=== PATIENT | female | born 1980 | race Two or more races ===

== ENCOUNTER 2021-01-13 08:41 | Inpatient (IN) ==
[2021-01-13] MEDS ORDERED: OXYTOCIN 30 UNITS/500 ML BAG IV PRN ×3 (09:10→17:12)
[2021-01-13] MEDS ORDERED: LACTATED RINGER'S 1,000 ML IV PRN (09:10)
[2021-01-13 09:35] LABS: Hemoglobin 12.4 g/dL (12.0-16.0); Mean Corpuscular Hgb Conc 34.4 g/dL (32-36); Mean Corpuscular Volume 101.7 fL (80-100); Mean Platelet Volume 11.3 fL (7.4-10.4); Platelet Count 156 K/uL (130-400); RDW Coefficient of Variation 12.5 % (11.5-14.5); RDW Standard Deviation 46.4 fL (36.4-46.3); Red Blood Count 3.54 M/uL (4.2-5.4); White Blood Count 6.35 K/uL (4.8-10.8)
--- NOTE | 2021-01-13 09:35 | History & Physical Report ---
Date of Service January 13, 2021 Assessment & Plan (1) Encounter for induction of labor: Plan: 40 yo EGA 40 wk by LMP, MARYLU 01/10/21, complicated by AMA and velamentous cord insertion, presenting for postdates IOL -HDS, afebrile -Blood type O+, GBS-, RI -Rh neg -SROM at 05:30 / -CTX every 4-5 minutes, good FM -FHT Cat 1 -Continue pitocin -Serial pelvic exams Admission and Anticipated Discharge Date Admission Date: January 13, 2021 History of Present Illness Primary Care Provider: SHARYN Huitron 40 yo EGA 40 wk confirmed by LMP, MARYLU 01/10/21, here for postdates induction of labor. complications include advanced maternal age, velamentous cord insertion. Has been attending OB appointments regularly with frequent ultrasound/NST monitoring, reassuring. Currently taking no medications. Reports gush of fluid at 05:30 AM, noticed minor spotting. Active FM, approximately 1-2 movements per hour. Did not experience contractions until 15- 20 minutes before arrival to L&D a few hours later. Contractions painful, occur every 4-5 minutes. Baby in vertex presentation via most recent OB clinic ultrasound. Currently denies any acute complaints or distress. OBHx: at 41 wks in 2007 with LGA baby, SAB at 6 weeks in 2017 GynHx: Chlamydia infection, resolved. Cervicitis s/p cauterization OB Labs: Blood Type O Positive 06/19/20 Antibody Screen NEGATIVE 06/19/20 Hemoglobin 12.0 g/dL (12.0-16.0) 10/16/20 Hematocrit 34.8 % (37-47) L 10/16/20 Mean Corpuscular Volume 94.0 fL (80-100) 06/19/20 Platelet Count 167 K/uL (130-400) 06/19/20 Rubella IgG Antibody Immune (Immune) 06/19/20 Rapid Plasma Reagin Nonreactive (Nonreactive) 06/19/20 Hepatitis B Surface Antigen Neg (Neg) 06/19/20 HIV (1&2) Ab and P24 Ag, 4th Gener Neg (Neg) 06/19/20 Glucose 1 Hour 50 gm Load 85 mg/dl (70-130) 10/16/20 Maternal Serum Alpha Fetoprotein 51.4 ng/mL 07/31/20 OB Optional Labs: Chlamydia trachomatis RNA NOT DETECTED (NOT DETECTED) 06/19/20 Neisseria gonorrhoeae RNA NOT DETECTED (NOT DETECTED) 06/19/20 Allergies Allergy/AdvReac Type Severity Reaction Status Date / Time No Known Allergies Allergy Verified 01/13/21 08:50 Home Medications Medication Instructions Recorded Confirmed Type prenat.vits,debora,[id number]-ralno 1 tab PO DAILY 06/05/20 01/13/21 History Jobst Stockings 1 ea .ROUTE .COMPLEX #1 ea 10/16/20 01/10/21 Rx Past Med/Surg History Medical History (Updated 01/13/21 @ 09:32 by Alex Santiago MD) History of chicken pox Surgical History (Updated 06/05/20 @ 10:44 by Ivelisse Good) S/P tonsillectomy Family History (Updated 06/05/20 @ 10:45 by Ivelisse Good) Mother Hypertension Father Hypertension Denies family history of Ovarian cancer Breast cancer Colorectal cancer Social History (Updated 06/05/20 @ 10:33 by Ivelisse Good) Smoking Status: Never smoker Hx Alcohol Use: No Hx Substance Use: No Preferred Language: [place] Communication Ability: Effective Crochet Beader Required: No Beliefs That Will Affect Care: None marital status: marital status details: spouse (54) [phone] Current Living Situation: Spouse Current Living Situation Comment: lives with spouse, son, no pets current occupational status: unemployed current occupation: homemaker Other Information That Helps Us Care for You: No Feels Safe at Home: Yes Safety Concerns: Feels Safe At This Time Assistive Devices: None Review of Systems Review of Systems: Denies fevers/chills. Denies dyspnea, cough. Denies chest pain. Denies breast pain or discharge. Denies dysuria. Denies headache. Physical Exam Physical Exam: General: Alert, oriented, no acute distress Cardiac: Regular rate and rhythm, normal S1, S2. No murmurs appreciated. Respiratory: Clear to auscultation b/l with good air flow entry, symmetric chest rise and fall. No wheezes or crackles. No increased work of breathing or accessory muscle use Abdomen: Gravid, soft, nontender. No guarding or CVA tenderness Skin: No rashes or lesions Extremities: Warm, dry, well-perfused with capillary refill <2s b/l Pelvic exam by Dr. Alvarez Dilation: 1-2 cm Effacement: 90% Station: -2 FHR Baseline: 135 BPM Variability: Moderate Accelerations: 15x15, present Decelerations: Absent Category: 1 Results & Data Results & Data ([facility]) Vital Signs (Past 12 Hours) Vital Signs Pulse BP 01/13/21 08:48 85 119/72 Supervising Physician Co-Signing Physician Notes Resident Physician Supervision Note: I interviewed and examined the patient. Discussed with Dr. Santiago and agree with findings and plan as documented in the note. Any exceptions or clarifications are listed here: [None] Documented By: Jamee Aguilar MD, FACOG Resident Activity Tracking Resident Involvement: Resident Care Provided Care Provided: OB Delivery
[2021-01-13] MEDS ORDERED: ePHEDrine sulfate 50 MG/ML AMP ONE (15:10)
[2021-01-13] MEDS ORDERED: SODIUM CHLORIDE 0.9% INJ 10 ML VIAL ONE (15:10)
[2021-01-13] MEDS ORDERED: BUPIVACAINE 0.25% 30 ML VIAL ONE (15:10)
[2021-01-13] MEDS ORDERED: fentaNYL citrate 100 MCG/2 ML VIAL ONE (15:11)
[2021-01-13] MEDS ORDERED: fentaNYL 2MCG/ML ROPIVACAINE 1.25MG/ML 100 ML BAG EPI ONE (15:11)
--- NOTE | 2021-01-13 15:27 | Anesthesiology Consultation ---
Date of Service January 13, 2021 Assessment & Plan Chart Review Chart Review: Patient NOT seen in Pre Admission Testing and Acceptable Risk for Labor Epidural Consults Requested none ASA ASA2 Proposed Anesthesia Anesthesia Type: Labor Epidural and CSE Risk / Benefits Reviewed With: PT / POA / Parent / Guardian, Accepts Plan and Informed Consent Obtained Additional Comments: covid test neg. History Height/Weight Height: 5 ft 3.78 in Weight: 72.121 kg Allergies Allergy/AdvReac Type Severity Reaction Status Date / Time No Known Allergies Allergy Verified 01/13/21 08:50 Medications Home Medications Medication Instructions Recorded Confirmed Last Taken prenat.vits,debora,kov-urcq-jdiob 1 tab PO DAILY 06/05/20 01/13/21 Unknown Jobst Stockings 1 ea .ROUTE .COMPLEX #1 ea 10/16/20 01/10/21 Unknown Active Medications Generic Name Dose Route Start Last Admin Trade Name Freq PRN Reason Stop Dose Admin Oxytocin 30 units in 500 mls @ 7 mls/hr 01/13/21 09:10 01/13/21 14:30 Pitocin IV 01/15/21 09:09 0.42 units/hr .Q24H PRN 7 mls/hr Labor Induction/Augmentation Titration Protocol 0.42 UNITS/HR Lactated Ringer's 1,000 mls @ 125 mls/hr 01/13/21 09:10 01/13/21 12:28 Lr IV 01/15/21 09:09 125 mls/hr .Q8H PRN Administration L&D Protocol Protocol NPO Date Last Intake of Fluids: 01/13/21 Time Last Intake of Fluids: 14:00 Date Last Intake of Solids: 01/13/21 Time Last Intake of Solids: 07:00 Past Medical History Medical History History of chicken pox Exercise / Class Metabolic Activity II 4-5 Yardwork/Stairs/Walk up hill Past Family History Family History Mother Hypertension Father Hypertension Denies family history of Ovarian cancer Breast cancer Colorectal cancer Past Surgical History Surgical History S/P tonsillectomy Past Anesthesia History No Hx of Anesthesia Complications and No Family Hx of Anesthesia Complications History of PONV No Hx of PONV and No Hx of Motion Sickness Social History Smoking Status: Never smoker Hx Alcohol Use: No Hx Substance Use: No Physical Exam Vital Signs Last Vital Signs Temp 36.5 C 01/13/21 11:52 Pulse 61 01/13/21 13:53 Resp 18 01/13/21 11:52 BP 117/66 01/13/21 13:53 Constitutional + obese ENMT Mouth: no dentition abnormality Thyromental Distance: < 3.5 Finger Breadths Mallampati Class: II Neck normal visual inspection and trachea midline Respiratory normal respiratory effort Auscultation: lungs clear to auscultation bilaterally Cardiovascular Rate/Rhythm: regular rate and regular rhythm Heart Sounds: no murmur Vessels: no carotid bruit Musculoskeletal Spine: lumbar spine normal to inspection; normal cervical ROM Neurologic moves all extremities Motor/Sensory: no sensory deficit Psychiatric Orientation: alert and oriented x 3 Testing Laboratory Results 01/13/21 09:19
[2021-01-13] MEDS ORDERED: PROMETHAZINE HCL 25 MG in SODIUM CHLORIDE 0.9% 50 ML IV PRN (15:47)
[2021-01-13] MEDS ORDERED: ePHEDrine sulfate 50 MG/ML AMP IV PRN (15:47)
[2021-01-13] MEDS ORDERED: NALOXONE HCL 1 MG in SODIUM CHLORIDE 0.9% 1000ML 1,000 ML IV PRN (15:47)
[2021-01-13] MEDS ORDERED: NALBUPHINE HCL INJ 10 MG/ML AMP IV PRN (15:47)
[2021-01-13] MEDS ORDERED: fentaNYL 2MCG/ML ROPIVACAINE 1.25MG/ML 100 ML BAG EPI PRN (15:47)
[2021-01-13] MEDS ORDERED: ONDANSETRON INJ 2 MG/ML 2 ML VIAL IV PRN (15:47)
[2021-01-13] MEDS ORDERED: NALOXONE HCL 0.4 MG/1 ML VIAL/CARP IV PRN (15:47)
[2021-01-13] MEDS ORDERED: diphenhydrAMINE 50 MG/ML VIAL IV PRN (15:47)
[2021-01-13] MEDS ORDERED: DIPHTHERIA/TETANUS/PERTUSSIS 0.5 ML SYR/VIAL IM ONE (17:12)
[2021-01-13] MEDS ORDERED: ACETAMINOPHEN 325 MG TAB PO PRN (17:12)
[2021-01-13] MEDS ORDERED: bisacodyL 10 MG SUPP PR PRN (17:12)
[2021-01-13] MEDS ORDERED: HYDROCORTISONE ACETATE 25 MG SUPP PR PRN (17:12)
[2021-01-13] MEDS ORDERED: BENZOCAINE 20% AER SPR 82.5 GM CAN EXT PRN (17:12)
[2021-01-13] MEDS ORDERED: SUPERCREAM 0.870% 15 GM JAR EXT PRN (17:12)
[2021-01-13] MEDS ORDERED: oxyCODONE/ACETAMINOPHEN 5mg/325mg TAB PO PRN (17:12)
--- NOTE | 2021-01-13 17:42 | Anesthesia Procedure Note ---
Date of Service January 13, 2021 Anesthesia Post Epidural Note Vital Signs Vital Signs: Temp Pulse Resp BP Pulse Ox 36.5 C 65 18 98/68 L 100 01/13/21 11:52 01/13/21 17:25 01/13/21 11:52 01/13/21 17:25 01/13/21 16:50 Pain Intensity Lower Abdomen: Pain Intensity: 7 Notes Mental Status: alert / awake / arousable Nausea / Vomiting: adequately controlled Pain: adequately controlled Airway Patency, RR, SpO2: stable & adequate BP & HR: stable & adequate Hydration State: stable & adequate Neuraxial Anesthesia: was administered and sensory block is resolving Anesthetic Complications: no major complications apparent Epidural: Removed without complications and With tip intact
[2021-01-13] MEDS: DOCUSATE SODIUM 100 MG CAP PO SCH (20:17)
[2021-01-13] MEDS: IBUPROFEN 600 MG TAB PO PRN (21:31)
--- NOTE | 2021-01-13 22:01 | Delivery Summary ---
Vaginal Delivery Summary Date of Service January 13, 2021 Vaginal Delivery Summary and 2nd Degree LAC Patient is a 40-year-old 3 para 1-0-1-1 white female who presented at 40-3/7 weeks with spontaneous rupture of membranes. The fluid was clear she had a regular contractions initially and so Pitocin augmentation was begun. She received effective epidural analgesia. She began having more right lower quadrant pain and she was examined and found to be complete but with a face presentation, mentum anterior. With the strength of her contractions, the presenting part descended t0 +3 station. She began to push effectively with rotation of the head to direct mentum anterior. A small medial lateral episiotomy was made in her prior episiotomy scar to allow the head to deliver. The right shoulder was then rotated into the anterior position and with further pushing effort the shoulder delivered followed by the rest of the infant which delivered easily. The infant was placed on the mother's abdomen for further attention and drying. The infant was vigorous after stimulation and moving all 4 limbs. After 1 minute the cord was clamped and cut. The placenta was expressed intact with a three-vessel cord. bleeding was controlled with dilute Pitocin and fundal massage. A second-degree mediolateral episiotomy was repaired with 3-0 chromic in the usual fashion. Estimated blood loss was 200 cc. Mother and were doing well after delivery. [facility] Vaginal Delivery Charge Delivery Type Details: and 2nd Degree LAC
--- NOTE | 2021-01-14 06:17 | Obstetrical Progress Note ---
Date of Service <Alex Santiago MD - Last Filed: 01/14/21 07:14> January 14, 2021 Assessment & Plan <Alex Santiago MD - Last Filed: 01/14/21 07:14> (1) Encounter for induction of labor: 40 yo now PPD1 from at 40wk3d with face presentation, complicated by AMA and velamentous cord insertion -Continue routine care, anticipated d/c tomorrow -Vitals reviewed- HDS, afebrile -Blood type O+, GBS-, RI -Encourage ambulation, regular diet -Pain control with Motrin, Tylenol PRN -Encourage -Hgb 12.4 on admission, asymptomatic -F/u in 6 weeks with OB (2) Encounter for care and examination after delivery: <Jamee Aguilar MD, FACOG - Last Filed: 01/14/21 08:03> (1) Encounter for induction of labor: (2) Encounter for care and examination after delivery: Subjective <Alex Santiago MD - Last Filed: 01/14/21 07:14> Ambulation: ambulating normally Voiding: no voiding problems Passing Gas:: Yes Diet Tolerance:: regular diet Lochia:: Small Feeding Type:: breast feeding Current Pain Level(1-10): 0 Pt and baby doing well, no acute events or complaints. Has not passed BM yet. Pain well controlled with medication. Review of Systems Denies fevers/chills. Denies dyspnea, cough. Denies chest pain. Denies breast pain or discharge. Denies dysuria. Denies headache. Physical Exam <Alex Santiago MD - Last Filed: 01/14/21 07:14> General: Alert, oriented, no acute distress Cardiac: Regular rate and rhythm, normal S1, S2. No murmurs appreciated. Respiratory: Clear to auscultation b/l with good air flow entry, symmetric chest rise and fall. No wheezes or crackles. No increased work of breathing or accessory muscle use Abdomen: Soft, nontender, nondistended. Fundus firm and palpable at 1 cm below umbilicus. No guarding or rebound. Skin: No rashes or lesions Extremities: Warm, dry, well-perfused with capillary refill <2s b/l. No lower extremity edema, erythema or swelling. Negative Erica's sign b/l. Results & Data ([facility]) <Alex Santiago MD - Last Filed: 01/14/21 07:14> Vital Signs (Past 12 Hours) Vital Signs Temp Pulse Pulse Resp BP BP Pulse Ox 01/14/21 04:15 36.6 C 55 L 20 111/67 99 01/13/21 23:55 36.9 C 61 20 106/69 99 01/13/21 20:00 36.5 C 78 16 109/71 98 01/13/21 18:55 66 18 103/64 01/13/21 18:40 67 106/65 01/13/21 18:25 67 18 112/68 <Jamee Aguilar MD, FACOG - Last Filed: 01/14/21 08:03> Co-Signing Physician Notes Resident Physician Supervision Note: I interviewed and examined the patient. Discussed with Dr. Santiago and agree with findings and plan as documented in the note. Any exceptions or clarifications are listed here: [None] Documented By: Jamee Aguilar MD, FACOG Resident Activity Tracking <Alex Santiago MD - Last Filed: 01/14/21 07:14> Resident Involvement: Resident Care Provided Care Provided: OB Delivery
[2021-01-14 07:10] LABS: Hematocrit (blood only) 32.2 % (37-47); Hemoglobin 10.9 g/dL (12.0-16.0); Mean Corpuscular Hemoglobin 34.6 pg (25-34); Mean Corpuscular Hgb Conc 33.9 g/dL (32-36); Mean Corpuscular Volume 102.2 fL (80-100); Mean Platelet Volume 11.1 fL (7.4-10.4); Platelet Count 137 K/uL (130-400); RDW Coefficient of Variation 12.6 % (11.5-14.5); RDW Standard Deviation 46.5 fL (36.4-46.3); Red Blood Count 3.15 M/uL (4.2-5.4); White Blood Count 9.43 K/uL (4.8-10.8)
[2021-01-14] MEDS: IBUPROFEN 600 MG TAB PO PRN ×2 (08:03→20:06)
[2021-01-14] MEDS: PRENATAL VITAMIN 1 TAB PO SCH (08:03)
[2021-01-14] MEDS: DOCUSATE SODIUM 100 MG CAP PO SCH ×2 (08:03→20:06)
[2021-01-14] MEDS ORDERED: NON-FORMULARY MEDICATION (Prenat.Vits,Cal,Min-Iron-Folic tablet) PO SCH (09:00)
[2021-01-14] MEDS ORDERED: bisacodyL 5 MG TABEC PO SCH (20:00)
--- NOTE | 2021-01-15 06:08 | Obstetrical Progress Note ---
Date of Service <Alex Santiago MD - Last Filed: 01/15/21 07:21> January 15, 2021 Assessment & Plan <Alex Santiago MD - Last Filed: 01/15/21 07:21> (1) Encounter for care and examination after delivery: 40 yo now PPD1 from at 40wk3d with face presentation, complicated by AMA and velamentous cord insertion -Continue routine care, will d/c today, discussed d/c with patient -Vitals reviewed- HDS, afebrile -Blood type O+, GBS-, RI -Encourage ambulation, regular diet -Pain control with Motrin, Tylenol PRN -Encourage , reassurance provided about bottlefeeding with expressed breast milk -Hgb 11 today, asymptomatic -F/u in 6 weeks with OB <Xuan Solo MD, FACOG - Last Filed: 01/15/21 07:28> (1) Encounter for care and examination after delivery: Subjective <Alex Santiago MD - Last Filed: 01/15/21 07:21> Ambulation: ambulating normally Voiding: no voiding problems Passing Gas:: Yes Diet Tolerance:: regular diet Lochia:: Small Feeding Type:: breast feeding Current Pain Level(1-10): 0 Pt and baby doing well, no acute events or complaints. Has not passed BM yet. Pain well controlled with medication. Asked if it's ok to both breastfeed and bottle feed baby with expressed breast milk. Review of Systems Denies fevers/chills. Denies dyspnea, cough. Denies chest pain. Denies breast pain or discharge. Denies dysuria. Denies headache. Physical Exam <Alex Santiago MD - Last Filed: 01/15/21 07:21> General: Alert, oriented, no acute distress Cardiac: Regular rate and rhythm, normal S1, S2. No murmurs appreciated. Respiratory: Clear to auscultation b/l with good air flow entry, symmetric chest rise and fall. No wheezes or crackles. No increased work of breathing or accessory muscle use Abdomen: Soft, nontender, nondistended. Fundus firm and palpable at 2 cm below umbilicus. No guarding or rebound. Skin: No rashes or lesions Extremities: Warm, dry, well-perfused with capillary refill <2s b/l. No lower extremity edema, erythema or swelling. Negative Erica's sign b/l. Results & Data ([facility]) <Alex Santiago MD - Last Filed: 01/15/21 07:21> Vital Signs (Past 12 Hours) Vital Signs Temp Pulse Resp BP 01/15/21 01:45 36.6 C 71 16 117/81 01/14/21 19:35 36.7 C 73 16 107/69 <Xuan Solo MD, FACOG - Last Filed: 01/15/21 07:28> Co-Signing Physician Notes Resident Physician Supervision Note: I interviewed and examined the patient. Discussed with Dr. Peterson and agree with findings and plan as documented in the note. Any exceptions or clarifications are listed here: Doing well . Plan d/c. Will need to give instructions when here or with hand laminator. f/u 6 weeks. Documented By: Xuan Solo MD, FACOG Resident Activity Tracking <Alex Santiago MD - Last Filed: 01/15/21 07:21> Resident Involvement: Resident Care Provided Care Provided: OB Delivery
[2021-01-15 07:04] LABS: Hematocrit (blood only) 33.3 % (37-47)
[2021-01-15] MEDS: PRENATAL VITAMIN 1 TAB PO SCH (09:36)
[2021-01-15] MEDS: DOCUSATE SODIUM 100 MG CAP PO SCH (09:37)
[2021-01-15] MEDS: IBUPROFEN 600 MG TAB PO PRN (09:37)
== END 2021-01-15 13:57 | disposition home or self-care (01) | DRG 807 ==
LOC: OPB 08:41 → 4S1 08:43 → 4S2 19:51